=== PATIENT | male | born 1990 | race Caucasian/White ===

== ENCOUNTER → 2021-06-21 11:34 | Outpatient (BNVA) | payer OTHER, SELFPAY | PROVIDERS: Visit Provider Physician Assistant Medical | DX: S97.122A Crushing injury of left lesser toe(s), initial encounter (principal); W31.89XA Contact with other specified machinery, initial encounter | CPT/HCPCS: 73660; 99203 ==

== ENCOUNTER → 2021-06-24 07:53 | Outpatient (BNVA) | payer OTHER, SELFPAY | PROVIDERS: Visit Provider Physician Assistant Medical | DX: S97.122A Crushing injury of left lesser toe(s), initial encounter (principal); W31.89XA Contact with other specified machinery, initial encounter | CPT/HCPCS: 99213 ==